=== PATIENT | female | born 1980 | race Caucasian/White ===

== ENCOUNTER 2021-07-08 11:59 | Outpatient (CLI) | payer BC | END 2021-07-08 12:00 | disposition home or self-care (01) | LOC: BICMAMMO 11:59 | PROVIDERS: ATTEND Student in an Organized Health Care Education/Training Program | DX: Z12.31 Encounter for screening mammogram for malignant neoplasm of breast (principal); Z80.3 Family history of malignant neoplasm of breast | CPT/HCPCS: 77063; 77067 ==